=== PATIENT | female | born 1985 | race Caucasian/White ===

== ENCOUNTER 2020-09-06 14:25 | Emergency (ER) | payer OTHER, SELFPAY ==
[2020-09-06 14:51] VITALS: BP 120/77; PULSE 89; RESP 12; TEMP 37.6; O2SAT 98; BMI 20.3
--- NOTE | 2020-09-06 15:28 | ED.URI ---
HPI - URI/Sore Throat <MARIA VICTORIA HollisP - Last Filed: 09/06/20 15:51> General Chief Complaint: Upper Respiratory Symptoms Stated Complaint: Cold, Can't Taste or Smell Anything Time Seen by Provider: 09/06/20 15:11 Source: patient Mode of arrival: Ambulatory Limitations: no limitations History of Present Illness HPI Narrative: This is a 35 year female, nonsmoker, who denies pertinent medical history presents to ED with chief complain of URI symptoms and is concerned for COVID. Patient reports started with sore throat with difficulty swallowing due to pain 4-5 days ago. Since then, she developed nasal congestion, body aches, feeling fatigue, significant nasal congestion is a with clear drips, and ear pressure and itchiness. Patient reports temperature runs in 99 F at home. 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 Patient has 3 young sons who has mild cold symptoms. Patient reports severe discomfort in cervical lymph node pain. Patient denies receiving flu immunization this season. LMP last than 4 weeks ago and is not concerned for since had vasectomy. PCP Dr. Valle Related Data Allergies Allergy/AdvReac Type Severity Reaction Status Date / Time No Known Drug Allergies Allergy Verified 09/06/20 14:53 Review of Systems <[facility] - Last Filed: 09/06/20 15:51> Review of Systems Narrative: General: See HPI HEENT: See HPI Respiratory: Denies dyspnea, (+) mild cough, (-) shortness of breath, wheezing, hemoptysis, sputum. Cardiovascular: Denies chest pain, palpitations, orthopnea, edema. Gastrointestinal: Denies nausea, vomiting, abdominal pain, diarrhea, constipation, melena. : Denies dysuria, frequency, incontinence, hematuria, urinary retention. Musculoskeletal: Denies weakness, joint pain or bony pain. Skin: Denies rash, skin lesions, or other. Neurologic: Denies weakness, headache, numbness, change in speech, confusion, seizures, incoordination. Psychiatric: No concerning psychosocial issues. 12-point review of systems is negative except for those stated above. Patient History <MARIA VICTORIA HollisP - Last Filed: 09/06/20 15:51> Medical History No significant past medical history Surgical History No pertinent past surgical history Social History Smoking Status: Never smoker Smoking Status: Never smoker Substance Use Type: does not use Exam <TIMOTHY Hollis - Last Filed: 09/06/20 15:51> Narrative Exam Narrative: GEN: Alert, oriented x 3, well appearing and nourished, and in no acute distress. Head: Normal cephalic, atraumatic. No scalp or temporal tenderness, palpable mass or rash. EYES: Pupils are equal, round, and reactive to light and accommodation. Extraocular muscles are intact bilaterally. There is no subconjunctival hemorrhage, exudate and sclera non-icteric. ENT: Left auditory canals and tympanic membranes clear. Right tympanic membrane dull. Hearing grossly intact. Nose without bleeding, purulent discharge or deviation. Conversing with nasal congestion and drips. Facial sinuses nontender to palpate. Mucous membrane moist, no mucosal lesion. Throat without erythema, tonsillar hypertrophy or exudate. Uvula in midline, airway patent. Neck: Trachea in midline. No JVD, non-tender without lymphadenopathy. No masses or thyroid megaly. Supple, non-tender and no meningeal signs. CARDIAC: Normal regular rate and rhythm without murmurs, gallops, or rubs. No chest wall tenderness. No peripheral edema, cyanosis or pallor. Capillary refill is less than 2 seconds. RESPIRATORY: Lungs are clear to auscultate bilaterally. No cough, wheezes, rales, or rhonchi. No stridor, respiratory distress, increase work of breathing, or accessary muscle used. ABD: Abdomen soft, nontender and non-distended. No guarding or rebound tenderness to palpate. Bowel sounds are normal in all 4 quadrants. There is no palpable masses or organomegaly. EXT: Full painless ROM of all extremities with no loss of sensation, strength, effusion or edema. SKIN: Warm, dry, normal color for patient. No erythema, lesions or rash over visible areas. BACK: Nontender without deformity or crepitance. No flank tenderness. NEUROLOGICAL: Alert and oriented to place, time and person. Sensation and motor function intact bilaterally. No facial droops, dysphasia. PSYCHIATRIC: Good judgement and reason, without hallucinations, abnormal affect or abnormal behaviors during the examination. Patient is not suicidal. Initial Vital Signs Initial Vital Signs: Vital Signs Temperature 99.7 F H 09/06/20 14:51 Pulse Rate 89 09/06/20 14:51 Respiratory Rate 12 09/06/20 14:51 Blood Pressure 120/77 09/06/20 14:51 Pulse Oximetry 98 09/06/20 14:51 <Terry Lowry DO - Last Filed: 09/06/20 19:37> Initial Vital Signs Initial Vital Signs: Vital Signs Temperature 99.7 F H 09/06/20 14:51 Pulse Rate 89 09/06/20 14:51 Respiratory Rate 12 09/06/20 14:51 Blood Pressure 120/77 09/06/20 14:51 Pulse Oximetry 98 09/06/20 14:51 Scores <MARIA VICTORIA HollisP - Last Filed: 09/06/20 15:51> GCS Living[place] coma scale eye opening: Spontaneous [place] coma scale verbal response: Orientated Vicki coma scale motor response: Obey commands Vicki coma scale total score: 15 qSOFA Altered Mental Status (GCS <15): No Respiratory rate greater than/equal to 22: No Systolic blood pressure less than or equal to 100: No qSOFA Total: 0 0-1 Not High Risk 1-3 High risk Course <TIMOTHY Hollis - Last Filed: 09/06/20 15:51> Orders Ordered: ED Orders 09/06/20 15:00 COVID19 Stat Vital Signs Vital signs: Vital Signs - 8 hr 09/06/20 14:51 Temperature 99.7 F H Pulse Rate 89 Respiratory Rate 12 Blood Pressure 120/77 Pulse Oximetry 98 <Terry Lowry DO - Last Filed: 09/06/20 19:37> Orders Ordered: ED Orders 09/06/20 15:00 COVID19 Stat Vital Signs Vital signs: Vital Signs - 8 hr 09/06/20 14:51 Temperature 99.7 F H Pulse Rate 89 Respiratory Rate 12 Blood Pressure 120/77 Pulse Oximetry 98 MDM - URI/Sore Throat <MARIA VICTORIA HollisP - Last Filed: 09/06/20 15:51> Differential Diagnosis Differential diagnosis: Likely upper respiratory infection, otitis media, sinusitis, viral infection, influenza, pharyngitis and other (COVID) Medical Records Attestation: I reviewed the patient's medical records. Lab Data Attestation: I reviewed the patient's lab results. Labs: Lab Results 09/06/20 Range/Units 15:00 SARS-CoV-2 (PCR) Negative (Negative) Point of Care Testing Rapid Strep A Negative MDM Narrative Medical decision making narrative: This is a 35 year female who presents to ED with last 4-5 days duration of sore throat, nasal congestion with clear drips, headache, body aches, fatigue, low-grade temperature. 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 Physical exam appreciated dull tympanic membrane in right ear. Physical exam not consistent with tonsillitis. Lung sounds are clear to auscultate all lobes without respiratory distress. Temperature here in ED 99.7 F with normotensive, without tachycardia. Patient nontoxic appearing. Patient elects to watch and monitor for right ear since at this time there is no pain associated and not taking antibiotic medications. Patient advised to treat herself with symptomatic management with increase hydration, rest, use [id number] Tylenol and or Motrin as needed, and Sudafed and Flonase for congestion and pressure discomfort discomfort. Discussed return precautions such as short of breath, increasing cough, sinus pain with purulent discharge, fever and other concerns and she verbalized the understanding in agreement with the treatment plan. <Terry Lowry DO - Last Filed: 09/06/20 19:37> Lab Data Labs: Lab Results 09/06/20 Range/Units 15:00 SARS-CoV-2 (PCR) Negative (Negative) Point of Care Testing Rapid Strep A Negative Discharge Plan Departure Patient Disposition: Home Clinical Impression: Upper respiratory infection Qualifiers: URI type: unspecified URI Qualified Code(s): J06.9 - Acute upper respiratory infection, unspecified Instructions: DI for Viral Upper Respiratory Infection -- Adult Activity Restrictions/Additional Instructions: You have been diagnosed with [upper respiratory infection. COVID and strep throat tests were negative. You may have early urine infection. Please monitor your symptoms with increasing pain or fever.]. What to do: *Take your medications as directed. You can take [id number] Tylenol and or Motrin as needed for discomfort. You can use [id number] Flonase and Sudafed for congestion. Please take adequate hydration and rest. *Follow up with your primary care provider in 2-3 days, call for an appointment. Let them know you were seen in the ED and that we asked you to be seen in follow up. *Return to ED if you have any new, worsening, or concerning symptoms, such as [worsening pain, high fever, short of breath, increasing cough, chest pain, unable to tolerate medications or any acute concerns]. Referrals: Clair Valle MD [Primary Care Provider] - <Terry Lowry DO - Last Filed: 09/06/20 19:37> Cosign ED Attending Cosjanetteature Attestation: I was immediately available in the department for consultation. This documentation has been reviewed and I agree with assessment and plan. Supervised by Terry Lowry DO
[2020-09-06 15:29] LABS: COVID19 -Nasal RAPID Negative (Negative)
== END 2020-09-06 15:42 | disposition home or self-care (01) ==
PROVIDERS: Emergency Medicine; Emergency Provider Nurse Practitioner Family; PCP Student in an Organized Health Care Education/Training Program
DX: J06.9 Acute upper respiratory infection, unspecified (principal); R09.81 Nasal congestion; R53.83 Other fatigue; R43.8 Other disturbances of smell and taste; Z20.822 Contact with and (suspected) exposure to COVID-19
CPT/HCPCS: 87635; 87880; 99281; 99282; C9803

== ENCOUNTER 2020-12-16 20:39 | Emergency (ER) | payer OTHER, SELFPAY ==
[2020-12-16 20:50] VITALS: BP 118/86; PULSE 81; RESP 14; TEMP 36.9; O2SAT 100
[2020-12-16 22:48] LABS: Bacteria Urine Many (>30); Culture Indicated Urine Specimen Cultured; RBC Urine 30-100/HPF (0-5/HPF); Squamous Epithelial Cell Urine 1-5 /HPF (0-5/HPF); WBC Urine >100/HPF (0-5/HPF)
[2020-12-16 23:33] VITALS: BP 127/86; PULSE 85; RESP 16; O2SAT 98
[2020-12-16] MEDS: PHENAZOPYRIDINE 100 MG TABLET 200 MG PO (23:34)
--- NOTE | 2020-12-16 23:39 | ED.FEMALEGU ---
HPI - Female Genitourinary General Chief complaint: Urogenital-Female Stated complaint: kidney and back pain Time Seen by Provider: 12/16/20 21:46 Source: patient Mode of arrival: Ambulatory Limitations: no limitations History of Present Illness HPI Narrative: 35-year-old female nonsmoker with noncontributory medical history presents with a chief complaint of few days of increasing urinary symptoms. She states that started with dysuria, frequency and urgency and progressed to some bilateral lower abdominal pain, foul-smelling and cloudy urine. She denies any fever or chills. She denies nausea or vomiting. She denies any vaginal bleeding or discharge. She states that she has never had a urinary tract infection before. MD Complaint: dysuria and UTI Onset (ago): day(s) Location: suprapubic Female Urogenital Radiation: L Flank and R Flank Severity: moderate Quality: Aching and Cramping Duration: constant Relieving factors: none Exacerbating factors: none Urinary symptoms: Dysuria, Flank Pain, Foul Smelling Urine, Frequency and Urgency Patient : No Associated symptoms: denies other symptoms Related Data Home Medications Medication Instructions Recorded Confirmed sumatriptan succinate 50 - 100 mg PO BID PRN 12/16/20 12/16/20 Previous Rx's Medication Instructions Recorded ciprofloxacin HCl 500 mg PO BID #14 tab 12/16/20 Allergies Allergy/AdvReac Type Severity Reaction Status Date / Time No Known Drug Allergies Allergy Verified 12/16/20 21:00 Review of Systems Constitutional Constitutional: Denies chills, Denies fatigue, Denies fever(s), Denies frequent falls, Denies lethargy and Denies weakness Eyes Eyes: Denies change in vision, Denies eye discharge, Denies irritation and Denies loss of vision ENT Ears, Nose, Mouth, and Throat: Denies change in voice, Denies dizziness, Denies neck pain, Denies sore throat and Denies throat swelling Cardiovascular Cardiovascular: Denies chest pain, Denies irregular heart rhythm, Denies lightheadedness, Denies palpitations, Denies dyspnea, Denies dyspnea on exertion and Denies orthopnea Respiratory Respiratory: Denies cough, Denies dyspnea, Denies dyspnea on exertion and Denies wheezing Gastrointestinal Gastrointestinal: Denies abdominal pain, Denies change in bowel habits, Denies diarrhea, Denies nausea and Denies vomiting Genitourinary Genitourinary: Reports dysuria and Reports urinary urgency Genitourinary: Reports dysuria and Reports urinary urgency Musculoskeletal Musculoskeletal: Denies neck pain and Denies numbness Integumentary/Breasts Skin/Breast: Denies pruritus, Denies erythema, Denies rash and Denies wounds Neurologic Neurologic: Denies behavioral changes, Denies confusion, Denies dizziness, Denies frequent falls, Denies loss of vision, Denies numbness and Denies weakness Psychiatric Psychiatric: Denies anxiety, Denies behavioral changes, Denies confusion, Denies depression, Denies homicidal ideation and Denies suicidal ideation Endocrine Endocrine: Denies fatigue, Denies flushing and Denies palpitations Hematologic/Lymphatic Hematologic/Lymphatic: Denies easy bruising Allergic/Immunologic Allergic/Immunologic: Denies urticaria, Denies throat swelling and Denies wheezing Patient History Medical History No significant past medical history Surgical History No pertinent past surgical history alcohol intake frequency: holidays/special occasions only Substance Use Type: does not use Exam Narrative Exam Narrative: GENERAL: [35] year old patient appears stated age. Well-nourished, well-developed patient, in mild distress. HEAD: Atraumatic. Normocephalic. EYES: Pupils equal round and reactive. Extraocular motions intact. No scleral icterus. No injection or drainage. ENT: Nose without bleeding, purulent drainage. Throat without erythema, tonsillar hypertrophy or exudate. Airway patent. NECK: Trachea midline. Non tender CARDIOVASCULAR: Regular rate and rhythm without murmurs, gallops, or rubs. RESPIRATORY: Clear to auscultation. Breath sounds equal bilaterally. No wheezes, rales, or rhonchi. GASTROINTESTINAL: Abdomen soft, non-tender, nondistended. EXTREMITIES: No edema or joint tenderness. BACK: Mild bilateral CVA tenderness NEURO: AOx3. SKIN: No rash or erythema of visible areas Initial Vital Signs Initial Vital Signs: Vital Signs Temperature 98.5 F 12/16/20 20:50 Pulse Rate 81 12/16/20 20:50 Respiratory Rate 14 12/16/20 20:50 Blood Pressure 118/86 12/16/20 20:50 Pulse Oximetry 100 12/16/20 20:50 Course Orders Ordered: ED Orders 12/16/20 22:06 Urine Culture Stat Urine Microscopic Stat Discontinued Medications Levofloxacin (Levofloxacin 250 Mg Tablet) 500 mg PO NOW ONE Stop: 12/16/20 23:41 Last Admin: 12/16/20 23:49 Dose: 500 mg Documented by: KATHRYN Ondansetron HCl (Ondansetron 4 Mg Odt Prepack) 1 bottle MISC SEEINSTR ONE Stop: 12/16/20 23:41 Last Admin: 12/16/20 23:49 Dose: 1 bottle Documented by: KATHRYN Phenazopyridine HCl (Phenazopyridine 100 Mg Tablet) 200 mg PO NOW ONE Stop: 12/16/20 23:25 Last Admin: 12/16/20 23:34 Dose: 200 mg Documented by: KATHRYN Vital Signs Vital signs: Vital Signs - 8 hr 12/16/20 23:33 Pulse Rate 85 Respiratory Rate 16 Blood Pressure 127/86 Pulse Oximetry 98 MDM - Female Genitourinary Lab Data Labs: Lab Results 12/16/20 Range/Units 22:06 Urine RBC 30-100/hpf H (0-5/HPF) Urine WBC >100/hpf H (0-5/HPF) Ur Squamous Epith Cells 1-5 /hpf (0-5/HPF) Urine Bacteria Many (>30) H (None) Ur Culture Indicated? Specimen cultured Point of Care Testing Test Results Negative Urine Dip Bedside Urine Glucose Negative Bedside Urine Bilirubin - Negative Bedside Urine Ketone - Negative Urine Specific [place] 1.030 Bedside Urine Occult Blood +++ Bedside Urine pH 6.0 Bedside Urine Protein ++ 100 Bedside Urine Urobilinogen - Negative Bedside Urine Nitrite + Positive Bedside Urine Leukocytes - Negative Esterase MDM Narrative Medical decision making narrative: Patient with very convincing urine and some systemic findings suggesting early pyelonephritis. Her pain is well controlled, she is tolerating orals and shows no signs of sepsis. First dose of antibiotics given here, prescription sent for the remaining week. Return precautions given and questions answered to her apparent satisfaction. Discharge Plan Departure Patient Disposition: Home Clinical Impression: Pyelonephritis Instructions: DI for Kidney Infection Activity Restrictions/Additional Instructions: *You have been diagnosed with [pyelonephritis] *What to do: *Please continue to take your regular medications as directed. [x ] New medication prescriptions sent to your pharmacy: [[facility]] [ ] New medication written as a paper prescription [ ] No new medications given *Please follow up with your primary care provider in 2-3 days, call for an appointment. Let them know you were seen in the Emergency Department and that we ask that you be seen in follow up. We will electronically transmit a record of today's note if your PCP is in our system *If you do not have a primary care provider please contact the [facility] Resource line at [phone]. They will ask some questions about your medical history and help get you set up with a doctor in the community. *Return to Emergency Department if you should have any new, worsening or concerning symptoms, such as [fever greater than 101 F, shaking chills, worsening pain, persistent vomiting or other bothersome symptoms] Prescriptions: New ciprofloxacin HCl 500 mg tablet 500 mg PO BID Qty: 14 RF: 0 No Action sumatriptan succinate 50 mg tablet 50 - 100 mg PO BID PRN (Reason: Migraine Headache) RF: 0 Referrals: Clair Valle MD [Primary Care Provider] - Stand Alone Forms: Work Release Note
[2020-12-16] MEDS: levoFLOXacin 250 MG TABLET 500 MG PO (23:49)
[2020-12-16] MEDS: ONDANSETRON 4 MG ODT PREPACK 1 BOTTLE MISC (23:49)
== END 2020-12-16 23:58 | disposition home or self-care (01) ==
PROVIDERS: Emergency Provider Emergency Medicine; PCP Student in an Organized Health Care Education/Training Program
DX: N12 Tubulo-interstitial nephritis, not specified as acute or chronic (principal)
CPT/HCPCS: 81003; 81015; 81025; 87077; 87086; 87186; 99283

== ENCOUNTER 2021-09-05 01:27 | Emergency (ER) | payer OTHER, SELFPAY ==
[2021-09-05 01:37] VITALS: BP 134/79; PULSE 99; RESP 18; TEMP 36.9; O2SAT 95; BMI 20.3
--- NOTE | 2021-09-05 01:46 | ED.GENADULT ---
HPI - General Adult General Chief complaint: Trauma Stated complaint: possibly broke tailbone Time Seen by Provider: 09/05/21 01:43 Source: patient Mode of arrival: Ambulatory History of Present Illness HPI narrative: 36-year-old female who is here for evaluation of tailbone pain. She states that she was riding a skateboard a couple days ago when she fell landing on her tailbone and since that time has had pain in that area. She has broken her tailbone in the past and she is concerned that it has happened again. She is having pain with sitting and moving and sleeping and having bowel movements. No other injuries from the event. She does state she has bruising in her lower back/buttocks. Related Data Home Medications Medication Instructions Recorded Confirmed sumatriptan succinate 50 mg tablet 50 - 100 mg PO BID PRN 12/16/20 12/16/20 Previous Rx's Medication Instructions Recorded ciprofloxacin HCl 500 mg tablet 500 mg PO BID #14 tab 12/16/20 Allergies Allergy/AdvReac Type Severity Reaction Status Date / Time No Known Drug Allergies Allergy Verified 12/16/20 21:00 Review of Systems Gastrointestinal Gastrointestinal: Reports as per HPI and Reports system reviewed and no additional complaints, except as documented Genitourinary Genitourinary: Reports system reviewed and no additional complaints, except as documented Musculoskeletal Musculoskeletal: Reports system reviewed and no additional complaints, except as documented and Reports as per HPI Integumentary/Breasts Skin/Breast: Reports system reviewed and no additional complaints, except as documented Hematologic/Lymphatic On Anticoagulants: No Patient History Medical History No significant past medical history Surgical History No pertinent past surgical history Social History Smoking Status: Never smoker Smoking Status: Never smoker alcohol intake frequency: holidays/special occasions only Substance Use Type: does not use Exam Initial Vital Signs Initial Vital Signs: Vital Signs Temperature 98.4 F 09/05/21 01:37 Pulse Rate 99 H 09/05/21 01:37 Respiratory Rate 18 09/05/21 01:37 Blood Pressure 134/79 09/05/21 01:37 Pulse Oximetry 95 09/05/21 01:37 HENMT Head: normal to inspection and normocephalic Resp Effort & Inspection: normal respiratory effort Cardio Rate: regular rate Back/Spine/Pelvis Thoracic/Lumbar Spine: No lumbar spinal tenderness Sacrum: tenderness Extrem General: normal to inspection Psych Appearance: grossly normal and well kempt Course Orders Ordered: ED Orders 09/05/21 01:50 XR sacrum coccyx min 2V Stat Vital Signs Vital signs: Vital Signs - 8 hr 09/05/21 01:37 09/05/21 02:33 09/05/21 02:45 Temperature 98.4 F Pulse Rate 99 H 71 71 Respiratory Rate 18 Blood Pressure 134/79 91/58 L Pulse Oximetry 95 98 100 Medical Decision Making Imaging Data Sacrum x-ray: Radiologist's Impression: No acute findings MDM Narrative Medical decision making narrative: Sacrum x-ray does not show any signs of an acute fracture. I did discuss this with her. Patient states she did not want any pain medication. Informed her that despite no findings of a fracture on the x-ray there still could potentially be a fracture there that is not apparent. Informed her that it would not change the course of treatment. No further workup needed in the emergency department. She can follow up with her primary doctor and return if needed. Discharge Plan Departure Patient Disposition: Home Clinical Impression: Acute coccygeal pain Activity Restrictions/Additional Instructions: There were no fractures noted on the x-rays but like I discussed that does not necessarily mean that there isn't a fracture that just isn't showing up. You can continue to take Tylenol/ibuprofen. Be sure that you are having soft normal regular bowel movements. Contact your primary doctor for follow-up. Prescriptions: No Action sumatriptan succinate 50 mg tablet 50 - 100 mg PO BID PRN (Reason: Migraine Headache) 0RF Label Comments: TAKE 1 TO 2 TABS AT ONSTE OF MIGRAINE HEADACHE MAY REPEAT IN 2 HOURS MAX 4 TABS IN 24 HOURS ciprofloxacin HCl 500 mg tablet 500 mg PO BID Qty: 14 0RF Referrals: Clair Valle MD [Primary Care Provider] -
--- NOTE | 2021-09-05 01:50 | DI.RAD.S_ITS ---
PROCEDURE: XR SACRUM COCCYX MIN 2V INDICATIONS: coccyx pain after fall TECHNIQUE: 3 views of the sacrum and coccyx acquired. COMPARISON: None. FINDINGS: Bones: No fractures or dislocations. No suspicious bony lesions. Soft tissues: Visualized bowel gas pattern is normal. No suspicious soft tissue densities. IMPRESSION: No fracture. No osseous lesion. If symptoms and/or clinical suspicion for pathology persists, further assessment with repeat radiographs (7-10 days) or advanced imaging (e.g. CT, MRI or bone scan) should be considered. Dictated by: Paulette Kim MD, PhD on 09/05/2021 at 7:48 Approved by: Paulette Kim MD, PhD on 09/05/2021 at 7:51
--- NOTE | 2021-09-05 01:50 | PC.NURSE ---
pt returned from x-ray during x-ray pt had a near syncopal episode in which she started seeing black spots and felt like she was going to pass out. pt states she thinks it is due to the pain and lack of sleep, pt is aao x 3 appears very anxious
[2021-09-05 02:33] VITALS: PULSE 71; O2SAT 98
[2021-09-05 02:45] VITALS: BP 91/58; PULSE 71; O2SAT 100
== END 2021-09-05 03:05 | disposition home or self-care (01) ==
PROVIDERS: Emergency Provider Emergency Medicine; PCP Student in an Organized Health Care Education/Training Program
DX: M53.3 Sacrococcygeal disorders, not elsewhere classified (principal); W18.30XA Fall on same level, unspecified, initial encounter; Y93.51 Activity, roller skating (inline) and skateboarding
CPT/HCPCS: 72220; 99281; 99283

== ENCOUNTER → 2021-12-13 18:57 | Outpatient (ROUT) | payer OTHER, SELFPAY ==
[2021-12-13 19:43] LABS: Influenza A - CEPHEID Flu A NEGATIVE (NEGATIVE); Influenza B - CEPHEID Flu B NEGATIVE (NEGATIVE)
[2021-12-13 19:46] LABS: COVID-19 CEPHEID PCR (VTM/NP) Negative (Negative)
== END ==
PROVIDERS: PCP Student in an Organized Health Care Education/Training Program; Visit Provider Internal Medicine
DX: R05.9 Cough, unspecified (principal); R50.9 Fever, unspecified
CPT/HCPCS: 0240U

== ENCOUNTER → 2021-12-23 07:48 | Outpatient (CLI) | payer OTHER, SELFPAY ==
--- NOTE | 2021-12-23 | DI.RAD.S_ITS ---
PROCEDURE: XR CERVICAL SPINE MIN 6V INDICATIONS: Cervicalgia TECHNIQUE: 7 views of the cervical spine were acquired. COMPARISON: None. FINDINGS: Bones: No fractures or dislocations to the T1 level. No suspicious bony lesions. Disc height is well maintained. No neural foraminal narrowing bilaterally. There is normal range of motion between flexion and extension, with preserved normal bony alignment. Soft tissues: Prevertebral soft tissues are normal in thickness. IMPRESSION: Normal cervical spine series. Dictated by: Juliocesar Emmanuel [facility] Interpreted: Sammy Sanchez MD on 12/23/2021 at 9:21 Transcribed by: MAHNAZ on 12/23/2021 at 9:22 Approved by: Sammy Sanchez M.D. on 12/23/2021 at 9:58
== END ==
PROVIDERS: PCP Student in an Organized Health Care Education/Training Program; Referring Provider Chiropractor; Visit Provider Chiropractor
DX: M99.11 Subluxation complex (vertebral) of cervical region (principal); M54.2 Cervicalgia
CPT/HCPCS: 72052

== ENCOUNTER → 2023-02-07 07:32 | Outpatient (CLI) | payer OTHER, SELFPAY ==
[2023-02-08 07:42] LABS: Hepatitis B Core AB w/Reflex Negative (Negative)
[2023-02-08 08:45] LABS: RPR Screen Non Reactive (Non Reactive)
[2023-02-09 17:32] LABS: Hepatitis B Surface Antigen NEGATIVE s/c (NEGATIVE)
[2023-02-09 17:49] LABS: HIV 1 & 2 Ab/Ag 4th Gen Combo NEGATIVE (NEGATIVE); Hep C Virus Ab w/Reflex Quant NEGATIVE s/c (NEGATIVE)
[2023-02-10 15:44] LABS: CMV QNT DNA PCR Negative copies/mL (Negative)
[2023-02-12 12:00] LABS: Urine N gonorrhoeae NOT DETECTED
[2023-02-12 12:04] LABS: Urine Chlamydia NOT DETECTED
== END ==
PROVIDERS: PCP Family Medicine; Referring Provider Obstetrics & Gynecology Reproductive Endocrinology; Visit Provider Obstetrics & Gynecology Reproductive Endocrinology
DX: Z11.3 Encounter for screening for infections with a predominantly sexual mode of transmission (principal); Z11.9 Encounter for screening for infectious and parasitic diseases, unspecified
CPT/HCPCS: 86592; 86704; 86803; 87340; 87389; 87491; 87497; 87591

== ENCOUNTER → 2023-03-02 06:46 | Outpatient (CLI) | payer OTHER, SELFPAY ==
[2023-03-02 07:55] LABS: HCG Quantitative /Beta subunit 220.3 mIU/mL
[2023-03-02 08:07] LABS: Estradiol, Total 977.4 pg/mL
== END ==
PROVIDERS: PCP Family Medicine; Referring Provider Obstetrics & Gynecology Reproductive Endocrinology; Visit Provider Obstetrics & Gynecology Reproductive Endocrinology
DX: Z32.00 Encounter for pregnancy test, result unknown (principal)
CPT/HCPCS: 36415; 82670; 84144; 84702

== ENCOUNTER → 2023-03-08 06:35 | Outpatient (CLI) | payer OTHER, SELFPAY ==
[2023-03-08 08:26] LABS: HCG Quantitative /Beta subunit 6291.1 mIU/mL
== END ==
PROVIDERS: PCP Family Medicine; Referring Provider Obstetrics & Gynecology Reproductive Endocrinology; Visit Provider Obstetrics & Gynecology Reproductive Endocrinology
DX: Z32.01 Encounter for pregnancy test, result positive (principal)
CPT/HCPCS: 36415; 82670; 84144; 84702

== ENCOUNTER → 2023-03-09 14:28 | Outpatient (CLI) | payer OTHER, SELFPAY ==
--- NOTE | 2023-03-09 | DI.US.S_ITS ---
PROCEDURE: US OB <= 14 WEEKS FETUS INDICATIONS: SPOTTING OUTSIDE/PRIOR DATING DATA: IVF transfer of 5d fetus 02/21/2023, C[facility] 11/09/2023 TECHNIQUE: Real-time scanning was performed of the fetus and maternal pelvic organs, with image documentation. Endovaginal scanning was also performed to better visualize the fetus and maternal ovaries. COMPARISON: None. FINDINGS: Intrauterine gestational sac present with mean gestational sac diameter 0.6 cm corresponding to gestational age of 5 weeks 2 days. A yolk sac is present. No embryo visualized at this time. A large perigestational hemorrhage is present, measuring up to 3.7 cm. Maternal organs: Right ovary is within normal limits. Left ovary not visualized. IMPRESSION: Intrauterine of uncertain viability. An early intrauterine gestational sac containing a yolk sac is present with mean gestational sac diameter corresponding to a gestational age of 5 weeks 2 days. No embryo is seen at this time. Recommend follow-up ultrasound in 11-14 days to assess for viability. Large perigestational hemorrhage present. We strive to produce accurate, complete, and clear reports of imaging services. To assist us in improving patient care, this report was composed using standard report templates and voice recognition software. Therefore, it may contain abnormal punctuation, insertions and/or omissions. Occasional wrong-word or sound-alike substitutions may occur. Though we review the report and make efforts to correct it, we do recommend that the report be read carefully in proper context to recognize any text inaccuracies. Dictated by: Sammy Sheridan M.D. on 03/09/2023 at 15:07 Approved by: Sammy Sheridan M.D. on 03/09/2023 at 15:16
[2023-03-09 17:05] LABS: HCG Quantitative /Beta subunit 9764.7 mIU/mL
== END ==
PROVIDERS: PCP Family Medicine; Referring Provider Obstetrics & Gynecology Reproductive Endocrinology; Visit Provider Obstetrics & Gynecology Reproductive Endocrinology
DX: O36.80X0 Pregnancy with inconclusive fetal viability, not applicable or unspecified (principal); O26.851 Spotting complicating pregnancy, first trimester; Z3A.01 Less than 8 weeks gestation of pregnancy
CPT/HCPCS: 36415; 76801; 76817; 84702

== ENCOUNTER 2023-10-06 16:35 | Observation (INO) | payer OTHER, SELFPAY ==
[2023-10-06 17:34] LABS: Add Manual Diff / Slide Review NO; Basophils Absolute Auto 200 /uL (0-100); Basophils Percent Auto 1.1 % (0-2); Eosinophils Absolute Auto 100 /uL (0-450); Eosinophils Percent Auto 0.9 % (2-4); Hematocrit 32.7 % (36-46); Hemoglobin 10.9 g/dL (12.0-16.0); Lymphocytes Absolute Auto 2500 /uL (1100-4500); Lymphocytes Percent Auto 16.9 % (25-40); Mean Corpuscular HGB Conc 33.4 % (30-36); Mean Corpuscular Hemoglobin 26.7 PG (26-34); Mean Corpuscular Volume 79.9 fL (80-100); Monocytes Absolute Auto 1100 /uL (0-900); Monocytes Percent Auto 7.4 % (3-14); Neutrophils Absolute Auto 11000 /uL (1500-7000); Neutrophils Percent Auto 73.7 % (50-75); Platelet Count 245 X10^3/uL (150-400); White Blood Cell Count 14.9 X10^3/uL (4.5-11.0)
[2023-10-06 17:47] LABS: Aspartate Aminotransferase 21 IU/L (14-36); BUN Creatinine Ratio 21.7 (6-22); Blood Urea Nitrogen 10 mg/dL (7-17); Estimated Glomerular Filt Rate > 60 mL/min (>60); Uric Acid 2.8 mg/dL (2.5-6.2)
[2023-10-06 17:48] LABS: BUN Creatinine Ratio 22.2 (6-22); Blood Urea Nitrogen 10 mg/dL (7-17); Calcium 8.5 mg/dL (8.4-10.2); Carbon Dioxide 21 mmol/L (22-32); Chloride 111 mmol/L (98-107); Estimated Glomerular Filt Rate > 60 mL/min (>60); Glucose 98 mg/dL (70-100); HEMOLYSIS < 15 (0-50); Potassium 3.9 mmol/L (3.4-5.1); Sodium 134 mmol/L (137-145)
[2023-10-06 17:57] LABS: Creatinine Urine Random 17.7 mg/dL; Protein (Total) Urine Random 17 mg/dL (0-12); Protein Creatinine Ratio Urine 0.96 GRAM/24H
--- NOTE | 2023-10-06 18:03 | P.TNLD_ITS ---
Visit Information Visit Information Date of evaluation: 10/06/23 Primary OB Provider: Kai Westfall On-call OB Provider: Scott Mendez Reason for Evaluation: Yes other Comments/Additional reasons for admission: 38-year-old at [place] 36 weeks presenting due to vision abnormality. Was participating in baby shower for the surrogate family earlier today and noted her blood pressure was more elevated than normal. [facility]ce[facility], called her OB after hours line and was advised to present in [place] for preeclampsia evaluation. She later noted visual floaters and blurred vision in left eye for about 1 hours earlier today that has since resolved. This concerned her enough that she decided to present here rather than driving to [place]. Denies persistent ASCENCIO, SOB, RUQ pain, peripheral swelling/edema. Endorses normal movement. No vaginal bleeding, leakage of fluid, abdominal pain, contractions. c/b AMA, anemia, IVF/surrogate . Blood pressure has been mildly elevated during this . Had labs for preeclampsia evaluation this past week and reports everything was normal with the exception of trace protein in her urine. She has been getting weekly NST evaluations through [facility] at her OB Clinic that have all been reassuring thus far. [facility] Medical History Hemorrhoids No significant past medical history Surgical History No pertinent past surgical history Family History Father Hypertension Heart disease Social History marital status: household members: spouse and children lives independently: Yes occupational status: employed Smoking Status: Never smoker alcohol intake: current substance use type: does not use Review of Systems Review of Systems ROS: Yes All systems reviewed with the patient and are negative except as otherwise documented Exam Narrative Exam Narrative: General: Pleasant, NAD HEENT: Normocephalic, EOMI, moist membranes CV: RRR, normal S1-S2, no m/g/r Resp: CTAB, comfortable WOB Abd: Gravid, nontender, nondistended, no guarding Extremities: No edema Neuro: A&O x3, normal tone Objective Labs 10/06/23 17:25 10/06/23 17:25 Labs: Laboratory Results - last 24 hr 10/06/23 10/06/23 10/06/23 17:15 17:25 17:25 WBC 14.9 H RBC 4.10 Hgb 10.9 L Hct 32.7 L MCV 79.9 L MCH 26.7 MCHC 33.4 RDW 13.0 Plt Count 245 Neut % (Auto) 73.7 Lymph % (Auto) 16.9 L [place] % (Auto) 7.4 Eos % (Auto) 0.9 L Baso % (Auto) 1.1 Neut # (Auto) 13315 H Lymph # (Auto) 2500 Steele # (Auto) 1100 H Eos # (Auto) 100 Baso # (Auto) 200 H Sodium 134 L Potassium 3.9 Chloride 111 H Carbon Dioxide 21 L BUN 10 10 Creatinine 0.46 L Estimated GFR BUN/Creatinine Ratio Glucose Uric Acid Calcium AST U Random Total Protein 17 H Urine Creatinine 17.7 Protein/Creatinin Ratio 0.96 10/06/23 10/06/23 10/06/23 17:25 17:25 17:25 WBC RBC Hgb Hct MCV MCH MCHC RDW Plt Count Neut % (Auto) Lymph % (Auto) [place] % (Auto) Eos % (Auto) Baso % (Auto) Neut # (Auto) Lymph # (Auto) [place] # (Auto) Eos # (Auto) Baso # (Auto) Sodium Potassium Chloride Carbon Dioxide BUN Creatinine 0.45 L Estimated GFR > 60 > 60 BUN/Creatinine Ratio 21.7 22.2 H Glucose 98 Uric Acid 2.8 Calcium 8.5 AST 21 U Random Total Protein Urine Creatinine Protein/Creatinin Ratio Evaluation Evaluation Baseline heart rate: 135 Variability: Moderate (11-25) monitor accelerations: Present Monitor Decelerations: Absent Contraction Frequency (minutes): 8 Category of Tracing: Reactive Status: Category l Comments: Contractions not felt by patient Diagnosis, Plan/Disposition Final Diagnosis (1) Mild pre-eclampsia in third trimester: Status: Acute (2) Advanced maternal age (AMA) in : Status: Acute (3) Surrogate in third trimester: Status: Acute (4) resulting from in vitro fertilization in third trimester: Status: Acute Plan/Disposition Plan: Moderately elevated but non-severe range BP, elevated urine P/C meeting criteria for preeclampsia w/o severe features. Labs also notable for mild leukocytosis to 14.9, anemia to 10.9, mild hyponatremia and hyperchloremia. Platelets, creatinine, liver enzymes all within normal range. Discussed results with Dr. Marino (position on-call for clinic), agrees with discharge home and close follow-up in 2 days at patient's previously scheduled NST. Message has been sent to her primary OB's clinical team to apprise them the situation. Patient discharged home with precautions for development of symptoms consistent with severe preeclampsia including BP > 160/110, persistent visual scotoma associated with severe headache that does not improve/resolve with Tylenol, shortness of breath, right upper quadrant pain, new swelling/edema. Patient and family expressed understanding. OB Disposition: home
== END 2023-10-06 19:08 | disposition home or self-care (01) ==
LOC: LABOR 16:37
PROVIDERS: Admitting Provider Family Medicine; PCP Family Medicine; Referring Provider Family Medicine; Visit Provider Family Medicine
DX: O14.03 Mild to moderate pre-eclampsia, third trimester (principal); O09.523 Supervision of elderly multigravida, third trimester; O09.813 Supervision of pregnancy resulting from assisted reproductive technology, third trimester; Z3A.36 36 weeks gestation of pregnancy
CPT/HCPCS: 36415; 59025; 59050; 80048; 82570; 84156; 84450; 84550; 85025; G0378; G0379

== ENCOUNTER 2023-10-27 00:30 | Emergency (ER) | payer OTHER, SELFPAY ==
[2023-10-27] VITALS (13 sets, daily range): BP systolic 115–163; BP diastolic 69–100; PULSE 90–105; RESP 12–20; TEMP 36.7; O2SAT 97–98; BMI 22.7
--- NOTE | 2023-10-27 00:54 | ED.GENADULT ---
HPI - General Adult General Chief complaint: Hypertension Stated complaint: high blood pressure Time Seen by Provider: 10/27/23 00:51 Source: patient Mode of arrival: Ambulatory History of Present Illness HPI narrative: 38-year-old female presents for hypertension 5 days . Patient had a vaginal delivery at 37 weeks' gestation, she was acting as a surrogate for her friend, however this was complicated by hypertension and possibly preeclampsia. Patient states that she would some abnormal labs that were closely followed by her OBGYN group at [facility]. Patient states that she has been very compliant with her labetalol 200 mg b.i.d, but her blood pressures consistently are in the 140s and 150s. She called her OBGYN earlier today, who recommended labetalol t.i.d. instead of b.i.d., however patient continued to be very concerned about her elevated blood pressures and decided to present for evaluation and laboratory work. Patient reports low-grade headache. She states that she does have a history of migraines and isn't certain if this is related to migraines or her hypertension. Denies leg swellig, chest pain, dyspnea, other complaints. Related Data Home Medications Medication Instructions Recorded Confirmed multivitamin 1 tab PO DAILY 08/11/22 08/11/22 Allergies Allergy/AdvReac Type Severity Reaction Status Date / Time No Known Drug Allergies Allergy Verified 08/11/22 09:17 Patient History Medical History Hemorrhoids No significant past medical history Surgical History No pertinent past surgical history Family History Father Hypertension Heart disease Social History marital status: household members: spouse and children lives independently: Yes occupational status: employed Smoking Status: Never smoker alcohol intake: current substance use type: does not use Smoking Status: Never smoker alcohol intake frequency: holidays/special occasions only Substance Use Type: does not use Exam Initial Vital Signs Initial Vital Signs: Vital Signs Temperature 98.1 F 10/27/23 00:37 Pulse Rate 94 H 10/27/23 00:37 Respiratory Rate 20 10/27/23 00:37 Blood Pressure 163/96 H 10/27/23 00:37 Pulse Oximetry 97 10/27/23 00:37 Oxygen Delivery Method Room Air 10/27/23 00:37 Const: Awake, alert, no acute distress, nontoxic appearing Cardiac: regular rate, regular rhythm RESP: unlabored, clear bilaterally, no wheezing GI: Soft, nontender, nondistended, no rebound, no guarding MSK: Atraumatic, full range of motion, pulses equal Skin: Warm, Dry, intact, no rashes Neuro: AO x3, CN II-XII grossly intact, moves all extremities Course Orders Ordered: Discontinued Medications Hydralazine HCl (Hydralazine 20 Mg/Ml Vial) 20 mg IV NOW ONE Stop: 10/27/23 00:52 Last Admin: 10/27/23 01:03 Dose: 20 mg Documented By: FABI Labetalol HCl (Labetalol 100 Mg Tablet) 400 mg PO NOW ONE Stop: 10/27/23 02:36 Last Admin: 10/27/23 02:44 Dose: Not Given Documented By: FABI Vital Signs Vital signs: Vital Signs - 8 hr 10/27/23 00:37 10/27/23 00:58 10/27/23 01:00 Temperature 98.1 F Pulse Rate 94 H 90 91 H Respiratory Rate 20 13 14 Blood Pressure 163/96 H Pulse Oximetry 97 98 98 Oxygen Delivery Method Room Air 10/27/23 01:00 10/27/23 01:15 10/27/23 01:15 Temperature Pulse Rate 100 H Respiratory Rate 15 Blood Pressure 150/100 H 146/84 H Pulse Oximetry 98 Oxygen Delivery Method 10/27/23 01:20 10/27/23 01:20 10/27/23 01:25 Temperature Pulse Rate 99 H 100 H Respiratory Rate 17 19 Blood Pressure 145/89 H Pulse Oximetry 98 98 Oxygen Delivery Method 10/27/23 01:25 10/27/23 01:30 10/27/23 01:30 Temperature Pulse Rate 93 H Respiratory Rate 15 Blood Pressure 144/93 H 125/69 Pulse Oximetry 97 Oxygen Delivery Method 10/27/23 01:41 10/27/23 01:41 10/27/23 01:45 Temperature Pulse Rate 99 H 93 H Respiratory Rate 12 15 Blood Pressure 143/90 H Pulse Oximetry 98 98 Oxygen Delivery Method 10/27/23 01:45 10/27/23 01:50 10/27/23 01:50 Temperature Pulse Rate 97 H Respiratory Rate 12 Blood Pressure 123/70 119/77 Pulse Oximetry 98 Oxygen Delivery Method 10/27/23 01:55 10/27/23 01:55 10/27/23 02:00 Temperature Pulse Rate 96 H 98 H Respiratory Rate 15 19 Blood Pressure 117/73 Pulse Oximetry 98 98 Oxygen Delivery Method 10/27/23 02:00 10/27/23 02:30 10/27/23 02:30 Temperature Pulse Rate 105 H Respiratory Rate 17 Blood Pressure 115/74 118/79 Pulse Oximetry 97 Oxygen Delivery Method Medical Decision Making Differential Diagnosis Differential Diagnosis: hypertension, pre-ecclampsia, ecclampsia with severe features Lab Data 10/27/23 01:00 10/27/23 01:00 Labs: Lab Results 10/27/23 10/27/23 Range/Units 01:00 01:40 WBC 14.7 H (4.5-11.0) X10^3/uL RBC 4.21 (4.0-5.2) X10^6/uL Hgb 10.9 L (12.0-16.0) g/dL Hct 33.7 L (36-46) % MCV 80.1 (80-100) fL MCH 25.9 L (26-34) PG MCHC 32.3 (30-36) % RDW 14.1 (11.6-14.8) % Plt Count 450 H (150-400) X10^3/uL Neut % (Auto) 70.1 (50-75) % Lymph % (Auto) 21.3 L (25-40) % [place] % (Auto) 5.8 (3-14) % Eos % (Auto) 2.2 (2-4) % Baso % (Auto) 0.6 (0-2) % Neut # (Auto) 29188 H (6856-9661) /uL Lymph # (Auto) 3100 (8686-4779) /uL [place] # (Auto) 900 (0-900) /uL Eos # (Auto) 300 (0-450) /uL Baso # (Auto) 100 (0-100) /uL Sodium 137 (137-145) mmol/L Potassium 4.4 (3.4-5.1) mmol/L Chloride 109 H (98-107) mmol/L Carbon Dioxide 23 (22-32) mmol/L BUN 14 (7-17) mg/dL Creatinine 0.56 (0.52-1.04) mg/dL Estimated GFR > 60 (>60) mL/min BUN/Creatinine Ratio 25.0 H (6-22) Glucose 100 (70-100) mg/dL Calcium 9.4 (8.4-10.2) mg/dL Magnesium 2.0 (1.6-2.3) mg/dL Total Bilirubin 0.5 (0.2-1.3) mg/dL AST 30 (14-36) IU/L ALT 25 (<35) IU/L Alkaline Phosphatase 122 (38-126) U/L Total Protein 6.9 (6.3-8.2) g/dL Albumin 3.6 (3.5-5.0) g/dL Globulin 3.3 (1.7-4.1) g/dL Albumin/Globulin Ratio 1.1 (1.0-2.8) Urine Color Yellow Urine Appearance Sl cloudy Urine pH 7.0 (4.5-8.0) Ur Specific [place] 1.010 (1.000-1.035) Urine Protein Negative (Negative) Urine Glucose (UA) Negative (Negative) g/dL Urine Ketones Negative (NEGATIVE) Urine Occult Blood 3+ H (Negative) Urine Nitrate Negative (Negative) Urine Bilirubin Negative (NEGATIVE) Urine Urobilinogen 0.2 (0.2) E.U./dL Ur Leukocyte Esterase 1+ H (NEGATIVE) Urine RBC 0-1/hpf D (0-5/HPF) Urine WBC 0-1/hpf (0-5/HPF) Ur Squamous Epith Cells 0-1 /hpf (0-5/HPF) Urine Bacteria Occasional (0-1) (None) Ur Culture Indicated? Cult not indicated Vol Urine Centrifuged 10ml (spun) MDM Narrative Medical decision making narrative: Hypertension and state. Patient reports headache but also states that it could be related to migraines. Initial blood pressure 163/96. Laboratory work is reviewed. WBC count 14.7, stable. Hemoglobin 10.9, stable, platelet count 450. Sodium 137, potassium 4.4, creatinine 0.56, magnesium 2.0, T bili 0.5, AST 30, ALT 25, alk phos 22. Urinalysis shows occult blood but no protein. Patient given a single dose of IV hydralazine with improvement in blood pressure. Call placed to on-call OBGYN at [facility] [place] who is familiar with the patient's case. They recommended increasing labetalol dose to 3 times daily. They did recommend a 2-4 hour observation after giving initial blood pressure medication dose here. Patient informed of lab findings as well as OBGYN recommendations. Patient states that she does not want to stay for observation stating that it was very late and she has young children at home. She will increase her blood pressure medication dose to 3 times daily and we will follow with her OBGYN clinic. She was relieved to know that her labs are normal today. ED return precautions discussed at bedside. Patient expressed understanding of the plan and is in agreement at this time. All questions answered at the time of discharge. Discharge Plan Departure Patient Disposition: Home Clinical Impression: hypertension Instructions: DI for High Blood Pressure Activity Restrictions/Additional Instructions: Increase your labetalol dose to 200 mg 3 times daily. If this is not controlling her blood pressure then OBGYN has recommended that you may increase your dose to 400 mg 3 times daily. Prescriptions: No Action multivitamin Tablet 1 tab PO DAILY Referrals: Harish Molina MD [Primary Care Provider] - Stand Alone Forms: Patient Portal/API
[2023-10-27] MEDS: HYDRALAZINE 20 MG/ML VIAL IV (01:03)
[2023-10-27 01:06] LABS: Add Manual Diff / Slide Review NO; Basophils Absolute Auto 100 /uL (0-100); Basophils Percent Auto 0.6 % (0-2); Eosinophils Absolute Auto 300 /uL (0-450); Eosinophils Percent Auto 2.2 % (2-4); Hematocrit 33.7 % (36-46); Hemoglobin 10.9 g/dL (12.0-16.0); Lymphocytes Absolute Auto 3100 /uL (1100-4500); Lymphocytes Percent Auto 21.3 % (25-40); Mean Corpuscular HGB Conc 32.3 % (30-36); Mean Corpuscular Hemoglobin 25.9 PG (26-34); Mean Corpuscular Volume 80.1 fL (80-100); Monocytes Absolute Auto 900 /uL (0-900); Monocytes Percent Auto 5.8 % (3-14); Neutrophils Absolute Auto 10300 /uL (1500-7000); Neutrophils Percent Auto 70.1 % (50-75); Platelet Count 450 X10^3/uL (150-400); Red Blood Cell Count 4.21 X10^6/uL (4.0-5.2); Red Cell Distribution Width 14.1 % (11.6-14.8); White Blood Cell Count 14.7 X10^3/uL (4.5-11.0)
[2023-10-27 01:20] LABS: Alanine Aminotransferase 25 IU/L (<35); Albumin 3.6 g/dL (3.5-5.0); Albumin Globulin Ratio 1.1 (1.0-2.8); Alkaline Phosphatase 122 U/L (38-126); Aspartate Aminotransferase 30 IU/L (14-36); Bilirubin Total 0.5 mg/dL (0.2-1.3); Blood Urea Nitrogen 14 mg/dL (7-17); Calcium 9.4 mg/dL (8.4-10.2); Carbon Dioxide 23 mmol/L (22-32); Chloride 109 mmol/L (98-107); Estimated Glomerular Filt Rate > 60 mL/min (>60); Globulin 3.3 g/dL (1.7-4.1); Glucose 100 mg/dL (70-100); HEMOLYSIS < 15 (0-50); Potassium 4.4 mmol/L (3.4-5.1); Sodium 137 mmol/L (137-145); Total Protein 6.9 g/dL (6.3-8.2)
--- NOTE | 2023-10-27 01:20 | PC.NURSE ---
Gave on Sunday, induced at 37 weeks for concern of pre eclampsia, pt states she has been taking 200mg labetolol to control BP, but that she has been having increased headaches, elevated BP >150 SBP, and numbness/tingling in bilateral arms. Denies any visual changes, states she had BLE swelling that resolve yesterday.
[2023-10-27 02:06] LABS: Bilirubin Urine UA NEGATIVE (NEGATIVE); Color Urine UA YELLOW; Glucose Urine UA NEGATIVE (Negative); Ketones Urine UA NEGATIVE (NEGATIVE); Leukocyte Esterase Urine UA 1+ (NEGATIVE); Nitrite Urine UA NEGATIVE (Negative); Occult Blood Urine UA 3+ (Negative); Protein Urine UA NEGATIVE (Negative); Urobilinogen Urine UA 0.2 E.U./dL (0.2)
[2023-10-27 02:11] LABS: Appearance Urine UA SL CLOUDY
[2023-10-27 02:16] LABS: Bacteria Urine Occasional (0-1); RBC Urine 0-1/HPF (0-5/HPF); Squamous Epithelial Cell Urine 0-1 /HPF (0-5/HPF); Urine Volume 10mL (spun); WBC Urine 0-1/HPF (0-5/HPF)
[2023-10-27 02:17] LABS: Culture Indicated Urine Cult Not Indicated
== END 2023-10-27 02:50 | disposition home or self-care (01) ==
PROVIDERS: Emergency Provider Emergency Medicine; PCP Family Medicine
DX: O16.5 Unspecified maternal hypertension, complicating the puerperium (principal)
CPT/HCPCS: 36415; 80053; 81001; 83735; 85025; 96374; 99284; J0360

== ENCOUNTER → 2024-06-10 17:06 | Outpatient (CLI) | payer OTHER, SELFPAY ==
--- NOTE | 2024-06-10 | DI.RAD.S_ITS ---
PROCEDURE: XR CHEST 2V INDICATIONS: acute cough TECHNIQUE: 2 views of the chest were acquired. COMPARISON: None. FINDINGS: Surgical changes and devices: None. Lungs and pleura: Patchy right basilar airspace opacities. Left lung appears clear. No pleural effusions or pneumothorax. Mediastinum: Mediastinal contours are normal. Heart size is normal. Bones and chest wall: No suspicious bony abnormalities. Soft tissues appear unremarkable. IMPRESSION: Patchy right lower lobe opacities suspicious for pneumonia. Recommend follow up chest radiograph 4-6 weeks after treatment to document resolution of findings and/or return to baseline examination. Dictated by: Geronimo Negrete M.D. on 06/10/2024 at 18:00 Approved by: Geronimo Negrete M.D. on 06/10/2024 at 18:00
== END ==
PROVIDERS: PCP Family Medicine; Referring Provider Internal Medicine; Visit Provider Internal Medicine
DX: R05.1 Acute cough (principal)
CPT/HCPCS: 71046